=== PATIENT | male | born 1975 | race Caucasian/White ===

== ENCOUNTER → 2016-09-27 | Outpatient (CLI) | payer BC ==
--- NOTE | ~2016-09-27 | ESTC ---
Cardiac Perfusion Imaging Demographics Patient Name CELIA Vogel Gender Male Patient Number [id number] Race Visit Number [id number] Ethnicity [employer] ID Room Number Accession Number [id number] Height 71 inches Date of 1975 Weight 185 pounds Interpreting Radha Kelley MD Date of study 09/27/2016 Physician Supervising /BENY GARCIA Technologist Sharmaine Garcia APRN Ordering Physician Radha Kelley MD Stress Kamila Huber time study technician RVT Stress ECG Reading Mario Lua Nurse Teri Vogel Physician FREDDIE orchid grower Procedure Type: Nuclear Stress Test:Exercise, Cardiolite Stress Test Procedure Start time: 09/27/2016 08:26 Indications: Chest pain. Risk Factors The patient risk factors include:Current/Recent(w/in 1 year) tobacco use and hypercholesterolemia. Conclusions Summary Cardiolite SPECT images demonstrate homogenous uptake of radioactive tracer. There is no evidence of inducible reversible defects and no evidence of underlying fixed defect. Normal TID ratio Gated images demonstrate normal left ventricular systolic function without evidence of inducible wall motion abnormalities. LVEF is 62% Stress Protocols Resting ECG RSR without ST or T wave changes Resting HR:51 bpm Resting BP:133/71 mmHg Pre-stress physical exam: Patient assessed by prior to testing by Frances Martin APRN. Stress Protocol:Exercise Peak HR:157 bpm HR response: Appropriate Peak BP:182/88 mmHg BP response: Appropriate Predicted HR: 177 bpm HR/BP product:75961 % of predicted HR: 89 Max exercise: 8.8 METS Test duration:08:30 min Reason for termination:Target heart rate Exercise effort:Good Perceived exertion:18 ECG Findings Sinus tachycardia. Arrhythmias No rhythm abnormality. ST depression V4, V5, V6 Symptoms Shortness of breath. Stress Interpretation The electrocardiographic portion of the stress test was positive for ischemia. Blood pressure response was normal, heart rate response was normal for exertion. The Rosales Treadmill Score was +3. This corresponds to a low to intermediate risk stress test. Stress supervision and interpretation provided by Lily Martin APRN . Imaging Results Applied corrections - Motion correction applied High risk findings Summed scores - Summed stress score: 1 - Summed rest score: 2 - Summed difference score: -1 Stress ejection Ejection fraction:62 % EDV :108 ml ESV :41 ml Stroke volume :67 ml LV mass :156 gr Imaging Protocols Rest Stress Isotope:Tc99m Sestamibi IV Isotope: Tc99m Sestamibi IV Isotope dose:14.4 mCi Isotope dose:40.3 mCi Date:09/27/2016 07:09 Date:09/27/2016 09:18 Technique: SPECT Technique: Gated Supine SPECT Supine Scan Time:45-60 minutes post Scan Time:45-60 minutes post injection injection Medical History Admission Data Admission date: 09/27/2016 Admission Time: 06:50 Hospital Status: Outpatient. Signatures dtt: Warren Garcia (cardio) dtd: 09/27/16 0826 Physician Self Edit
== END | disposition disaster alternative care site (69) ==
LOC: GRAD 06:50
DX: R07.89 Other chest pain (principal); E78.00 Pure hypercholesterolemia, unspecified; Z72.0 Tobacco use
CPT/HCPCS: A9500